=== PATIENT | male | born 1970 | race Caucasian/White ===

== ENCOUNTER → 2021-01-24 13:39 | Outpatient (CLI) | payer BC, SELFPAY ==
--- NOTE | 2021-01-24 13:47 | EKG12_ITS ---
Test Reason : PRE OP Blood Pressure : / mmHG Vent. Rate : 092 BPM Atrial Rate : 093 BPM P-R Int : 182 ms QRS Dur : 140 ms QT Int : 394 ms P-R-T Axes : 051 -24 043 degrees QTc Int : 487 ms Normal sinus rhythm Right bundle branch block Abnormal ECG Confirmed by ROBSON BRIGHT, JARED ([id number]), editor house organ HUGO DURAN ([id number]) on 01/28/2021 10:54:02 AM Referred By: Bear Christian Confirmed By:SARA CHANCE MD
[2021-01-24 16:23] LABS: Hematocrit 42.9 % (40-54); Hemoglobin 14.1 g/dL (13.0-16.5); Mean Corp Hgb Conc 32.9 g/dL (32-36); Mean Corpuscular Hgb 29.2 pg (27.0-32.0); Mean Corpuscular Volume 88.8 fL (80-94); Mean Platelet Vol. 9.2 fl (6.2-12.0); Platelet Count 213 K/mm3 (150-450); RBC Distribution Width CV 12.9 % (11.6-14.6); Red Blood Count 4.83 M/mm3 (4.6-6.2); White Blood Count 5.8 K/mm3 (4.4-11.0)
[2021-01-24 17:02] LABS: Anion Gap 5 (5-15); BUN 23 mg/dL (7-18); BUN/Creat Ratio 16.4 RATIO (10-20); Calcium,Total 8.7 mg/dL (8.5-10.1); Chloride 105 mmol/L (98-107); EST Glomerular Filtration Rate 57 mL/min (>60); Est Glom Filt Rate - Afr Amer 69 mL/min (>60); Glucose 98 mg/dL (74-106); Potassium 3.9 mmol/L (3.5-5.1); Sodium Level 139 mmol/L (136-145)
== END ==
PROVIDERS: Referring Provider Urology; Visit Provider Urology
DX: Z01.810 Encounter for preprocedural cardiovascular examination (principal); Z01.812 Encounter for preprocedural laboratory examination; Z03.818 Encounter for observation for suspected exposure to other biological agents ruled out
CPT/HCPCS: 36415; 80048; 85027; 87635; 93005; C9803; U0005; U0003